=== PATIENT | male | born 1990 | race Caucasian/White ===

== ENCOUNTER 2024-06-26 10:06 | Inpatient (IN) ==
[2024-06-26] MEDS: HALOPERIDOL LACTATE 5 MG/ML VIAL IM ONE (10:25)
[2024-06-26] MEDS: 0.9 % SODIUM CHLORIDE 1,000 ML IV ONE ×3 (10:55→14:37)
[2024-06-26 11:11] LABS: Basophils # (Auto) 0 K/mcL (0.00-0.30); Basophils % (Auto) 0 % (0.0-2.0); Eosinophils # (Auto) 0.03 K/mcL (0.00-0.70); Eosinophils % (Auto) 0.2 % (0.0-7.0); Hematocrit 34.9 % (40.1-51.0); Hemoglobin 11.1 g/dL (13.7-17.5); Lymphocytes % (Auto) 5.8 % (15.5-49.0); Mean Corpuscular HGB Conc 31.8 g/dL (31.0-36.0); Mean Platelet Volume 10.8 fL (8.8-12.5); Monocytes # (Auto) 1.11 K/mcL (0.10-0.90); Monocytes % (Auto) 7.2 % (1.0-12.0); Neutrophils % (Auto) 86.7 % (38.0-78.0); Platelet Count 298 K/mcL (140-440); RBC 4.06 M/mcL (4.63-6.08); Red Cell Distribution Width 15.7 % (11.5-14.5); WBC 15.4 K/mcL (4.5-11.0)
[2024-06-26] MEDS ORDERED: VANCOMYCIN 1,500 MG in 0.9 % SODIUM CHLORIDE 500 ML IV ONE (11:31)
[2024-06-26 11:32] LABS: Alcohol, Blood < 10.1 mg/dL; Alcohol,Blood < 0.010 gm/dL (<0.010)
[2024-06-26 11:33] LABS: Appearance,Urine Cloudy (Clear); Bacteria,Urine Mod /hpf (0); Bilirubin,Urine Negative (Negative); Color,Urine Yellow; Glucose,Urine (UA) Negative (Negative); Ketones,Urine Trace mg/dL (Negative); Leukocyte Esterase,Urine Large /uL (Negative); Nitrate,Urine Positive (Negative); Protein,Urine 100 mg/dL (Negative); Urine Blood Large ery/mcL (Negative); Urine Granular Cast 2 /lph (0-0); Urine Hyaline Cast 6 /lph (0-2); Urine RBC 0 /hpf (0-3); Urine Squamous Epithelial Cell 0 /hpf (0-4); Urine WBC > 182 /hpf (0-4); Urobilinogen,Urine Normal
[2024-06-26] MEDS: ACETAMINOPHEN 1,000 MG/100 ML BAG IV ONE (11:35)
[2024-06-26 11:37] LABS: Thyroid Stimulating Hormone 0.41 uIU/mL (0.27-5.01)
[2024-06-26 11:45] LABS: ALT/SGPT 16 U/L (<40); AST/SGOT 14 U/L (<40); Albumin 3.4 gm/dL (3.2-5.2); Albumin/Globulin Ratio 0.7 (1.0-2.3); Alkaline Phosphatase 93 U/L (39-117); Bilirubin,Total 0.3 mg/dL (0.1-1.0); Blood Urea Nitrogen 52 mg/dL (6-20); Calcium 9.4 mg/dL (8.6-10.4); Carbon Dioxide 20 mmol/L (22-30); Chloride 99 mmol/L (96-108); Globulin 4.7 gm/dL (2.2-3.7); Glomerular Filtration Rate 10; Glucose 99 mg/dL (70-105); Potassium 5.9 mmol/L (3.3-5.1); Sodium 137 mmol/L (133-145)
[2024-06-26 12:01] LABS: Free T4 (Free Thyroxine) 1.38 ng/dL (0.93-1.70)
[2024-06-26] MEDS: CEFEPIME 1 GM VIAL IV ONE (12:11)
[2024-06-26] MEDS: DEXTROSE 50% 50 ML SYRINGE IV ONE ×2 (12:15→21:50)
[2024-06-26] MEDS: CALCIUM GLUCONATE 4.65 MEQ in DEXTROSE 5% IN WATER 50 ML IV ONE (12:22)
[2024-06-26] MEDS: INSULIN REGULAR, HUMAN 1 UNIT/0.01 ML UNIT IV ONE ×2 (12:28→21:29)
[2024-06-26] MEDS: DEXTROSE 50% 50 ML VIAL IV ONE ×2 (12:28→21:25)
[2024-06-26] MEDS: VANCOMYCIN 2,000 MG in 0.9 % SODIUM CHLORIDE 500 ML IV ONE (12:34)
[2024-06-26 13:24] LABS: Amphetamine Screen,Urine Suspect positive; Barbiturate Screen,Urine None detected; Benzodiazepines Screen,Urine None detected; Cannabinoid Screen,Urine None detected; Cocaine Screen,Urine None detected; Fentanyl, Urine Screen None Detected; Opiate Screen,Urine None detected; Oxycodone, Urine Screen Suspect Positive; Phencyclidine Screen,Urine None detected
[2024-06-26 14:28] LABS: Blood Urea Nitrogen 51 mg/dL (6-20); Calcium 8.8 mg/dL (8.6-10.4); Carbon Dioxide 22 mmol/L (22-30); Chloride 103 mmol/L (96-108); Glomerular Filtration Rate 10; Glucose 97 mg/dL (70-105); Potassium 5.3 mmol/L (3.3-5.1); Sodium 137 mmol/L (133-145)
[2024-06-26] MEDS ORDERED: VANCOMYCIN PER PHARMACY IV SCH (14:56)
[2024-06-26] MEDS ORDERED: PROPOFOL 200 MG/20 ML VIAL IV ONE (15:46)
[2024-06-26] MEDS ORDERED: KETAMINE 50 MG/ML ML ONE (15:46)
[2024-06-26] MEDS ORDERED: fentaNYL 100 MCG/2 ML VIAL ONE (15:46)
[2024-06-26] MEDS ORDERED: FAMOTIDINE/PF 20 MG/2 ML VIAL IV ONE (15:49)
[2024-06-26] MEDS ORDERED: GLYCOPYRROLATE 0.2 MG/ML VIAL IV ONE (15:50)
[2024-06-26] MEDS ORDERED: ONDANSETRON 4 MG/2 ML VIAL ONE (15:50)
[2024-06-26] MEDS ORDERED: DEXAMETHASONE 10 MG/ML VIAL ONE (15:50)
[2024-06-26] MEDS ORDERED: LIDOCAINE 2% PF 5 ML VIAL ONE (15:50)
[2024-06-26] MEDS ORDERED: NALOXONE HCL 0.4 MG/ML VIAL IV PRN (16:00)
[2024-06-26] MEDS ORDERED: ONDANSETRON 4 MG/2 ML VIAL IV PRN (16:00)
[2024-06-26] MEDS ORDERED: BENZOCAINE/MENTHOL 1 LOZENGE PO PRN (16:00)
[2024-06-26] MEDS ORDERED: HYDROmorphone 0.5 MG/0.5 ML SYRINGE IV PRN (16:00)
[2024-06-26] MEDS ORDERED: IPRATROPIUM/ALBUTEROL 3 ML AMPUL.NEB NEB PRN ×2 (16:00→17:54)
[2024-06-26] MEDS ORDERED: METHOCARBAMOL 1,000 MG/10 ML VIAL IV PRN (16:00)
[2024-06-26] MEDS ORDERED: LACTATED RINGERS 250 ML IV PRN (16:00)
[2024-06-26] MEDS ORDERED: fentaNYL 100 MCG/2 ML VIAL IV PRN (16:00)
[2024-06-26] MEDS ORDERED: NON FORMULARY MEDICATION 1 DOSE MISCELL (Oxycodone 10 mg tablet) PO PRN (17:54)
[2024-06-26] MEDS ORDERED: ACETAMINOPHEN 650 MG/65 ML BAG IV PRN (17:54)
[2024-06-26] MEDS ORDERED: BACLOFEN 10 MG TABLET PO PRN (18:02)
[2024-06-26] MEDS ORDERED: oxyCODONE IR 5 MG TABLET PO PRN (18:05)
[2024-06-26] MEDS ORDERED: GADOBENATE DIMEGLUMINE 15 ML/VIAL IV ONE (18:51)
[2024-06-26] MEDS: LACTATED RINGERS 1,000 ML IV SCH ×2 (19:20→21:55)
[2024-06-26 20:42] LABS: Blood Urea Nitrogen 47 mg/dL (6-20); Calcium 9.4 mg/dL (8.6-10.4); Carbon Dioxide 19 mmol/L (22-30); Chloride 103 mmol/L (96-108); Glomerular Filtration Rate 14; Glucose 112 mg/dL (70-105); Sodium 138 mmol/L (133-145)
[2024-06-26] MEDS ORDERED: SODIUM BICARBONATE 50 MEQ/50 ML VIAL IV SCH (20:45)
[2024-06-26] MEDS ORDERED: APIXABAN 5 MG TABLET PO SCH (21:00)
[2024-06-26] MEDS: ALBUTEROL SULFATE 2.5 MG/3 ML NEBULIZER NEB ONE (21:00)
[2024-06-26] MEDS: SODIUM ZIRCONIUM CYCLOSILICATE 10 GM PACKET PO ONE (21:29)
[2024-06-26] MEDS: SODIUM BICARBONATE VIAL 150 MEQ in WATER FOR INJECTION,STERILE 850 ML IV SCH (21:39)
[2024-06-26] MEDS: SODIUM BICARBONATE 50 MEQ/50 ML VIAL ONE (21:48)
[2024-06-26] MEDS: BETHANECHOL 10 MG TABLET PO SCH (21:50)
[2024-06-26] MEDS: DOCUSATE SODIUM 100 MG CAPSULE PO SCH (21:50)
[2024-06-26] MEDS: SENNOSIDES 1 TABLET PO SCH (21:50)
[2024-06-26] MEDS: 0.9 % SODIUM CHLORIDE 10 ML SYRINGE IV SCH ×2 (22:01)
[2024-06-26] MEDS: CEFEPIME 1 GM VIAL IV SCH (22:05)
[2024-06-26 23:35] LABS: Blood Urea Nitrogen 46 mg/dL (6-20); Calcium 9.3 mg/dL (8.6-10.4); Carbon Dioxide 18 mmol/L (22-30); Chloride 103 mmol/L (96-108); Glomerular Filtration Rate 15; Glucose 202 mg/dL (70-105); Potassium 4.5 mmol/L (3.3-5.1); Sodium 139 mmol/L (133-145)
[2024-06-26 23:57] VITALS: TEMP 97.3; O2SAT 91
[2024-06-27] MEDS ORDERED: TAMSULOSIN 0.4 MG CAPSULE PO SCH (09:00)
[2024-06-27] MEDS ORDERED: BISACODYL 10 MG SUPP.RECT PR SCH (09:00)
== END 2024-06-27 00:14 | disposition short-term general hospital (02) | DRG 871 ==
LOC: ED 10:06 → SSSU 15:56 → ICU 17:43
PROVIDERS: ADMIT Student in an Organized Health Care Education/Training Program; ATTEND Student in an Organized Health Care Education/Training Program